=== PATIENT | female | born 1980 | race Caucasian/White ===

== ENCOUNTER 2017-07-20 20:35 | Emergency (ER) | payer SELFPAY ==
[~2017-07-20] VITALS: Ht 160 cm; Wt 52.2 kg
--- NOTE | 2017-07-20 21:01 | ED.ADGEN ---
Adult General Chief Complaint Chief Complaint " I got the flu or something. ... I ve been wheezing.... and I got the fever and chills. .." HPI HPI Patient is a 36 year old female who presents with complaints of fever, chills, malaise, arthralgia, myalgia, pharyngitis, wheezing with nonproductive cough. Patient denies any history immunosuppression. Patient denies any specific ill contacts. No recent travel. Patient presently lives in [place], [place]. No flu vaccination this year. Patient does smoke. Patient denies illicit drug use. Review of Systems Review of Systems Constitutional: History of fever or chills [] Eyes: Denies change in visual acuity, redness, or eye pain [] HENT: History nasal congestion and sore throat [] Respiratory: Hx. cough and wheezing Cardiovascular: No additional information not addressed in HPI [] GI: Denies abdominal pain, nausea, vomiting, bloody stools or diarrhea [] : Denies dysuria or hematuria [] Musculoskeletal: Complaining of generalized myalgia, arthralgia and malaise Integument: Denies rash or skin lesions [] Neurologic: Denies headache, focal weakness or sensory changes [] Endocrine: Denies polyuria or polydipsia [] All other systems were reviewed and found to be within normal limits, except as documented in this note. Family History Family History Noncontributory Current Medications Current Medications Current Medications Medications (Trade) Dose Ordered Sig/Ry Start Time Stop Time Status Last Admin Dose Admin Albuterol Sulfate (Ventolin Hfa) 2 puff 1X ONCE 07/20/17 22:30 07/20/17 22:30 DC 07/20/17 22:08 2 PUFF Diphenhydramine HCl (Benadryl) 50 mg 1X ONCE 07/20/17 22:30 07/20/17 22:30 DC 07/20/17 22:08 50 MG Ibuprofen (Motrin) 600 mg 1X ONCE 07/20/17 22:30 07/20/17 22:30 DC 07/20/17 22:07 600 MG Oseltamivir Phosphate (Tamiflu) 75 mg 1X ONCE 07/20/17 22:30 07/20/17 22:30 DC 07/20/17 22:07 75 MG Allergies Allergies Allergies Coded Allergies Type Severity Reaction Last Updated Verified No Known Drug Allergies 07/21/17 No Physical Exam Physical Exam Constitutional: Moderately acute distress, non-toxic appearance. [] HENT: Normocephalic, atraumatic, bilateral external ears normal, oropharynx moist, injected pharynx no oral exudates, nose rhinorrhea. Very poor dentition Eyes: PERRLA, EOMI, conjunctiva normal, no discharge. [] Neck: Normal range of motion, no tenderness, supple, no stridor. [] Cardiovascular:Heart rate regular rhythm, no murmur [] Lungs & Thorax: Bilateral breath equal at apexes with scattered wheezes on auscultation [] Abdomen: Bowel sounds normal, soft, no tenderness, no masses, no pulsatile masses. [] Old surgical scar. Skin: Warm, dry, no erythema, no rash. [] Back: No tenderness, no CVA tenderness. [] Extremities: No tenderness, no cyanosis, no clubbing, ROM intact, no edema. Mild injection alicia on her arms. Neurologic: Alert and oriented X 3, normal motor function, normal sensory function, no focal deficits noted. [] Psychologic: Affect anxious, judgement normal, mood normal. [] Current Patient Data Vital Signs Vital Signs Date Time Temp Pulse Resp B/P (MAP) Pulse Ox O2 Delivery O2 Flow Rate FiO2 07/20/17 22:15 98.3 92 22 114/74 (87) 99 Room Air Lab Results Laboratory Tests Test 07/20/17 21:00 Influenza Type A (Rapid) Negative (NEGATIVE) Influenza Type B (Rapid) Positive (NEGATIVE) Group A Streptococcus Rapid Negative (NEGATIVE) EKG EKG [] Radiology/Procedures Radiology/Procedures My interpretation of chest x-ray shows hyperexpansion. No large consolidation or infiltrate. Normal cardiac silhouette[] Course & Med Decision Making Course & Med Decision Making Pertinent Labs and Imaging studies reviewed. (See chart for details). Take Tylenol and ibuprofen as needed for fever and discomfort. Benadryl 25-50 mg 4 times a day daily may be helpful for congestion and rhinorrhea. Push fluids. Push vitamin C drinks. Get adequate rest. Take Tamiflu 75 mg twice a day. x 5 days. Stop smoking. Return if any concerns. Follow-up primary care. Use MDI 2 puffs 4 times a day. [] Final Impression Final Impression 1. Tobacco abuse 2. Influenza B[] Problems: Paula Disclaimer Dragon Disclaimer This electronic medical record was generated, in whole or in part, using a voice recognition dictation system. SCOTT ESPITIA MD Jul 20, 2017 21:01
[2017-07-20 21:47] LABS: INFLUENZA A PATIENT NEGATIVE (NEGATIVE); INFLUENZA B PATIENT POSITIVE (NEGATIVE)
[2017-07-20] MEDS ORDERED: OSEL75CA PO (21:57)
[2017-07-20 22:15] VITALS: BP 114/74
[2017-07-20] MEDS ORDERED: ALBUTEROL SULFATE 8GM INHALER. INH ONE (22:30)
[2017-07-20] MEDS ORDERED: OSELTAMIVIR 75 MG CAPSULE PO ONE (22:30)
[2017-07-20] MEDS ORDERED: IBUPROFEN 600 MG TABLET. PO ONE (22:30)
[2017-07-20] MEDS ORDERED: diphenhydrAMINE HCL 25 MG CAPSULE PO ONE (22:30)
--- NOTE | 2017-07-21 08:21 | RAD ---
PROCEDURE: CHEST PA LATERAL CLINICAL INDICATION: cough COMPARISON: None FINDINGS: No pneumothorax identified. Cardiac and mediastinal contours unremarkable. No pulmonary consolidation or acute airspace disease. No acute osseous abnormalities identified. IMPRESSION: No pulmonary consolidation or acute airspace disease.
== END 2017-07-20 22:18 | disposition home or self-care (01) ==
LOC: ER 20:35
DX: J10.1 Influenza due to other identified influenza virus with other respiratory manifestations (principal); Z72.0 Tobacco use
CPT/HCPCS: 71046; 87070; 87804; 87880; 99285; J7613; Q0163

== ENCOUNTER 2018-05-19 12:52 | Emergency (ER) | payer SELFPAY ==
[~2018-05-19] VITALS: Ht 165.1 cm; Wt 55.3 kg
[~2018-05-19 12:52] MED LIST: OSEL75CA PO
[2018-05-19] MEDS ORDERED: IOHEXOL 240 MG/ML 50ML VIAL. ONE (13:25)
--- NOTE | 2018-05-19 13:25 | PHYS DOC ---
Past History Past Medical History: Bronchitis Past Surgical History: Tubal ligation Alcohol Use: Occasionally Drug Use: Marijuana Adult General Chief Complaint Chief Complaint: PELVIC PAIN HPI HPI 37-year-old female presents with right lower quadrant abdominal pain. The patient has had intermittent pain for the last 1 week. She describes it as a cramping sensation. Patient presents today because the pain seems to be frequent. It has been more intense today. At its worst is an 8 out of 10. On arrival the pain was gone, but the patient is still very tender in the right lower quadrant. Patient denies dysuria but admits to urinary frequency. She denies . The patient has had a previous tubal for which she had one ovary removed. She does not recall which side. She denies nausea or vomiting. She has not had a fever. She denies any change in vaginal discharge or odor. Last menses was 2 weeks ago. Review of Systems Review of Systems Constitutional: Denies fever or chills [] Eyes: Denies change in visual acuity, redness, or eye pain [] HENT: Denies nasal congestion or sore throat [] Respiratory: Denies cough or shortness of breath [] Cardiovascular: No additional information not addressed in HPI [] GI: RLQ pain [] : Denies dysuria or hematuria [] Musculoskeletal: Denies back pain or joint pain [] Integument: Denies rash or skin lesions [] Neurologic: Denies headache, focal weakness or sensory changes [] Endocrine: Denies polyuria or polydipsia [] All other systems were reviewed and found to be within normal limits, except as documented in this note. Current Medications Current Medications Current Medications Medications (Trade) Dose Ordered Sig/Ry Start Time Stop Time Status Last Admin Dose Admin Sodium Chloride 1,000 ml @ 1,000 mls/hr 1X ONCE 05/19/18 13:15 05/19/18 14:14 Allergies Allergies Allergies Coded Allergies Type Severity Reaction Last Updated Verified No Known Drug Allergies 07/21/17 No Physical Exam Physical Exam Constitutional: Well developed, well nourished, no acute distress, non-toxic appearance. [] HENT: Normocephalic, atraumatic, bilateral external ears normal, oropharynx moist, no oral exudates, nose normal. Poor dentition[] Eyes: PERRLA, EOMI, conjunctiva normal, no discharge. [] Neck: Normal range of motion, no tenderness, supple, no stridor. [] Cardiovascular:Heart rate regular rhythm, no murmur [] Lungs & Thorax: Bilateral breath sounds clear to auscultation [] Abdomen: Bowel sounds normal, soft, right lower quadrant tenderness.[] Skin: Warm, dry, no erythema, no rash. [] Back: No tenderness, no CVA tenderness. [] Extremities: No tenderness, no cyanosis, no clubbing, ROM intact, no edema. [] Neurologic: Alert and oriented X 3, normal motor function, normal sensory function, no focal deficits noted. [] Psychologic: Affect normal, judgement normal, mood normal. [] EKG EKG [] Radiology/Procedures Radiology/Procedures [] Impressions: EXAM: CT Abdomen and Pelvis with IV contrast CLINICAL HISTORY: ABDOMINAL PAIN, RIGHT LOWER QUADRANT PAIN COMPARISON: none TECHNIQUE: Helical CT of the abdomen and pelvis was performed following the administration of intravenous contrast. Axial, coronal and sagittal reformatted images were generated. PQRS compliance statement - One or more of the following individualized dose reduction techniques were utilized for this study: 1. Automated exposure control 2. Adjustment of the mA and/or kV according to patient size 3. Use of iterative reconstruction technique FINDINGS: Lower chest: Lung bases are clear. Abdomen and Pelvis: No focal liver lesion. Gallbladder is unremarkable. No biliary ductal dilatation. Spleen is unremarkable. Adrenal glands are normal. Pancreas is unremarkable. Symmetric nephrograms. No focal renal lesion. No hydronephrosis. There is mild thickening of the bladder wall with associated fat infiltration, nonspecific but may be seen with cystitis. Moderate colonic stool content is seen. Oral contrast material seen to the level of the transverse colon. The appendix is normal, partially opacified with contrast, without associated periappendiceal fat infiltration. No bowel obstruction. The uterus is prominent with associated prominence of the endometrial stripe measuring up to 8 mm. Right adnexal cysts are seen, likely small ovarian follicles. No evidence for free intraperitoneal fluid or gas. No abdominal or pelvic lymphadenopathy. No mesenteric lymphadenopathy. Bones: Osseous structures are grossly unremarkable. IMPRESSION: 1. The appendix is normal without associated periappendiceal fat infiltration. 2. Mild bladder wall thickening with associated inflammatory change may be seen with cystitis. 3. The uterus is heterogeneous in appearance, prominent with prominence of the endometrial stripe. This can be further assessed by pelvic ultrasound as clinically indicated. 4. Small right adnexal cysts are seen, possibly ovarian follicles although incompletely assessed and can be further assessed by pelvic ultrasound. Electronically signed by: Sami Buckley MD (05/19/2018 3:30 PM) [id number] DICTATED AND SIGNED BY: SAMI BUCKLEY MD DATE: 05/19/18 1518 CC: AMANDA CHAMBERLAIN DO; PCP,NO Course & Med Decision Making Course & Med Decision Making Pertinent Labs and Imaging studies reviewed. (See chart for details) Patient's labs remarkable for a slightly elevated white count of 13.8. Her urinalysis is negative for infection. Her CT of the abdomen and pelvis does not show an appendectomy. There is some mild thickening of the endometrium at 8 mm. I told the patient about this and advised that she follow up with [facility]. There are no other significant findings on CT. The patient is feeling well at this time. She is stable for discharge at this time. [] Dragon Disclaimer Dragon Disclaimer This electronic medical record was generated, in whole or in part, using a voice recognition dictation system. Departure Departure: Impression: Primary Impression: Right lower quadrant abdominal pain Additional Impression: Thickened endometrium Disposition: HOME, SELF-CARE Condition: STABLE Referrals: PCP,NO (PCP) Problem Qualifiers AMANDA CHAMBERLAIN DO May 19, 2018 13:25
[2018-05-19] MEDS: IV NORMAL SALINE 1,000ML 1,000 ML IV ONE (13:46)
[2018-05-19] MEDS: ONDANSETRON PF 4 MG/2 ML VIAL. IV ONE (13:47)
[2018-05-19 13:57] LABS: BASO % 0 % (0-3); EOS # 0.4 x10^3/uL (0.0-0.7); EOS % 3 % (0-3); HEMATOCRIT 43.3 % (36.0-47.0); HEMOGLOBIN 14.4 g/dL (12.0-15.5); LYMPH # 2.7 x10^3/uL (1.0-4.8); LYMPH % 20 % (24-48); MEAN CORPUSCULAR HEMOGLOBIN 28 pg (25-35); MEAN CORPUSCULAR HGB CONC 33 g/dL (31-37); MEAN CORPUSCULAR VOLUME 84 fL (79-100); MONO # 0.8 x10^3/uL (0.0-1.1); MONO % 6 % (0-9); NEUT # 9.8 x10^3uL (1.8-7.7); NEUT % 71 % (31-73); PLATELET COUNT 428 x10^3/uL (140-400); RED BLOOD COUNT 5.15 x10^6/uL (3.50-5.40); RED CELL DISTRIBUTION WIDTH 13.7 % (11.5-14.5); WHITE BLOOD COUNT 13.8 x10^3/uL (4.0-11.0)
[2018-05-19 14:05] LABS: BACTERIA,URINE FEW /HPF (0-FEW); BILIRUBIN,URINE NEG (NEG); CLARITY,URINE HAZY; COLOR,URINE STRAW; GLUCOSE,URINE NEG (NEG); NITRITE,URINE NEG (NEG); RBC,URINE 0 /HPF (0-2); SQUAMOUS EPITHELIAL CELL,UR FEW /LPF; UROBILINOGEN,URINE 0.2 mg/dL (0.2 mg/dL)
[2018-05-19 14:11] LABS: ALBUMIN 3.3 g/dL (3.4-5.0); ALBUMIN/GLOBULIN RATIO 0.7 (1.0-1.7); CALCIUM 8.9 mg/dL (8.5-10.1); CREATININE 0.8 mg/dL (0.6-1.0); GFR 80.3; POTASSIUM 3.8 mmol/L (3.5-5.1); TOTAL BILIRUBIN 0.2 mg/dL (0.2-1.0); TOTAL PROTEIN 7.9 g/dL (6.4-8.2)
[2018-05-19] MEDS: IOHEXOL 300 MG/ML 75 ML VIAL. IV ONE (14:50)
[2018-05-19 15:10] VITALS: BP 120/83
--- NOTE | 2018-05-19 15:34 | RAD ---
EXAM: CT Abdomen and Pelvis with IV contrast CLINICAL HISTORY: ABDOMINAL PAIN, RIGHT LOWER QUADRANT PAIN COMPARISON: none TECHNIQUE: Helical CT of the abdomen and pelvis was performed following the administration of intravenous contrast. Axial, coronal and sagittal reformatted images were generated. PQRS compliance statement - One or more of the following individualized dose reduction techniques were utilized for this study: 1. Automated exposure control 2. Adjustment of the mA and/or kV according to patient size 3. Use of iterative reconstruction technique FINDINGS: Lower chest: Lung bases are clear. Abdomen and Pelvis: No focal liver lesion. Gallbladder is unremarkable. No biliary ductal dilatation. Spleen is unremarkable. Adrenal glands are normal. Pancreas is unremarkable. Symmetric nephrograms. No focal renal lesion. No hydronephrosis. There is mild thickening of the bladder wall with associated fat infiltration, nonspecific but may be seen with cystitis. Moderate colonic stool content is seen. Oral contrast material seen to the level of the transverse colon. The appendix is normal, partially opacified with contrast, without associated periappendiceal fat infiltration. No bowel obstruction. The uterus is prominent with associated prominence of the endometrial stripe measuring up to 8 mm. Right adnexal cysts are seen, likely small ovarian follicles. No evidence for free intraperitoneal fluid or gas. No abdominal or pelvic lymphadenopathy. No mesenteric lymphadenopathy. Bones: Osseous structures are grossly unremarkable. IMPRESSION: 1. The appendix is normal without associated periappendiceal fat infiltration. 2. Mild bladder wall thickening with associated inflammatory change may be seen with cystitis. 3. The uterus is heterogeneous in appearance, prominent with prominence of the endometrial stripe. This can be further assessed by pelvic ultrasound as clinically indicated. 4. Small right adnexal cysts are seen, possibly ovarian follicles although incompletely assessed and can be further assessed by pelvic ultrasound. Electronically signed by: Sami Buckley MD (05/19/2018 3:30 PM) [id number]
== END 2018-05-19 15:55 | disposition home or self-care (01) ==
LOC: ER 12:52
DX: R93.89 Abnormal findings on diagnostic imaging of other specified body structures (principal); R10.31 Right lower quadrant pain; D72.829 Elevated white blood cell count, unspecified; Z98.51 Tubal ligation status
CPT/HCPCS: 36415; 74177; 80053; 81001; 85025; 87086; 96374; 99284; J2405; Q9967; J7030